=== PATIENT | male | born 1970 | race African-American/Black ===

== ENCOUNTER 2020-08-05 11:55 | Emergency (ER) | payer MEDICARE, OTHER ==
[2020-08-05] MEDS ORDERED: EPINEPHrine 1 MG/ML AMP ONE ×3 (11:59→12:23)
[2020-08-05] MEDS ORDERED: EPINEPHrine 1 MG/10 ML Abboject SYRINGE ONE ×2 (12:02→12:22)
[2020-08-05] MEDS ORDERED: Rocuronium Bromide 10 MG/ML (10ML VIAL) ONE ×2 (12:04)
[2020-08-05] MEDS ORDERED: Calcium Gluc 4.6 MEQ/10 ML (100 MG/ML) ONE (12:13)
[2020-08-05] MEDS ORDERED: Calcium Chloride 1 GM/10 ML Abboject SYRINGE ONE ×2 (12:13→12:27)
[2020-08-05 12:31] LABS: #Lymphocytes 4.4 thou/uL (1.20-3.40); #Monocytes 0.7 thou/uL (0.11-0.59); #Neutrophils 5.1 thou/uL (1.40-6.50); %Basophils 0.5 % (0.0-1.0); %Eosinophils 0.3 % (0.0-10.0); %Lymphocytes 42.6 % (21.0-51.0); %Monocytes 6.4 % (0.0-10.0); %Neutrophils 50.2 % (42.0-75.0); Hemoglobin 12.8 g/dL (14.0-18.0); Mean Corpuscular Hemoglobin 28.1 pg (27.0-31.0); Mean Corpuscular Volume 93.7 fL (78.0-98.0); Mean Platelet Volume 10.1 fL (7.4-10.4); Platelet Count 134 thou/uL (130-400); RBC Distribution Width 14.4 % (11.5-14.5); Red Blood Cell (RBC) Count 4.54 mill/uL (4.70-6.10); White Blood Cell (WBC) Count 10.2 thou/uL (4.8-10.8)
[2020-08-05 12:37] LABS: INR-International Normal Ratio 4.8
[2020-08-05 12:45] LABS: PTT Greater than 250.0 sec (22.9-36.1)
[2020-08-05 12:50] LABS: ALT (SGPT) 62 U/L (8-55); AST (SGOT) 83 U/L (5-34); Albumin 3.1 g/dL (3.5-5.0); Alkaline Phosphatase 34 U/L (40-110); Anion Gap 21 mmol/L (10-20); BUN (Urea Nitrogen) 31 mg/dL (8.9-20.6); Bilirubin, Total 0.3 mg/dL (0.2-1.2); Calc. Creatinine Clearance 0 mL/min (70-130); Carbon Dioxide 31 mmol/L (22-29); Chloride 97 mmol/L (98-107); Globulin 3.6 g/dL (2.4-3.5); Glucose 297 mg/dL (70-105); Potassium 6.8 mmol/L (3.5-5.1); Protein, Total 6.7 g/dL (6.0-8.3); Sodium 142 mmol/L (136-145)
[2020-08-05 12:59] LABS: MDiff Complete? YES; Platelet Morphology Comment Appears Adequate; Polychromasia SLIGHT = 2-3 cells (100X) (0-2/hpf)
[2020-08-05 13:05] LABS: Acetaminophen Less than 6.0 mcg/mL (10.0-30.0); Alcohol Less than 10 mg/dL (Less than 10); Salicylate Less than 8.0 mg/dL (15.0-30.0)
[2020-08-05 13:15] LABS: Calcium Greater than 17.0 mg/dL (7.8-10.44)
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
[2020-08-05 18:30] LABS: SARS-CoV-2 MS2 Positive; SARS-CoV-2 N Gene Positive; SARS-CoV-2 S Gene Positive; SARS-CoV-2 by NAA DETECTED (NotDetected); SARS-CoV-2 orf1ab Positive
== END 2020-08-05 12:56 | disposition expired ==
LOC: EDBD 11:55 → ERS 11:55
DX: I46.9 Cardiac arrest, cause unspecified (principal); I10 Essential (primary) hypertension
CPT/HCPCS: 32551; 36430; 36556; 51702; 80053; 80307; 83605; 83690; 85025; 85610; 85730; 86850; 86900; 86901; 86920; 94002; 96374; 96375; 96376; 99285; P9016; U0003; 36415; 87635; J0171; J2001